=== PATIENT | male | born 1950 | race Two or more races ===

== ENCOUNTER 2017-05-24 07:55 | Day surgery (SDC) | payer OTHER ==
[2017-05-24] VITALS (8 sets, daily range): BP systolic 103–140; BP diastolic 70–81
[~2017-05-24] VITALS: Ht 162.6 cm; Wt 68.0 kg
--- NOTE | 2017-05-24 06:45 | Anethesia Preoperative Eval ---
Anesthesia Pre-op PMH/ROS General Date of Evaluation: May 24, 2017 Time of Evaluation: 06:44 Anesthesiologist: chadd ASA Score: ASA 3 Mallampati Score Class I : Soft palate, uvula, fauces, pillars visible Class II: Soft palate, uvula, fauces visible Class III: Soft palate, base of uvula visible Class IV: Only hard plate visible Mallampati Classification: Class II Surgeon: levy Diagnosis: gerd Surgical Procedure: egd Anesthesia History: none Family History: no anesthesia problems Allergies: Coded Allergies: No Known Allergies (Unverified , 05/23/17) Medications: see eMAR Past Medical History Cardiovascular: Reports: HTN Gastrointestinal/Genitourinary: Reports: GERD Neurologic/Psychiatric: Reports: depression/anxiety Endocrine: Reports: hypothyroidism Musculoskeletal/Integumentary: Reports: OA Anesthesia Pre-op Phys. Exam Physician Exam Last Vital Signs Date Time Temp Pulse Resp B/P (MAP) Pulse Ox O2 Delivery O2 Flow Rate FiO2 05/24/17 08:35 97.5 69 20 140/70 Room Air Constitutional: NAD Neurologic: CN 2-12 intact Cardiovascular: RRR Respiratory: CTA Gastrointestinal: S/NT/ND Airway Exam Mallampati Score: Class II MO: full Neck: short TMD: 2fb ROM: full Teeth: intact Anesthesia Pre-op A/P Risk Assessment & Plan Assessment: asa3 Plan: mac Status Change Before Surgery: No Pre-Antibiotics Drug: MARGIE Mccrary May 24, 2017 06:45
--- NOTE | 2017-05-24 07:31 | Short Stay Surgery H&P ---
History of Present Illness History of Present Illness Chief Complaint Abdominal pains, GERDS. RAMANDEEP Martinez is a 67 year old male who was admitted on for GERD and abdominal pains Patient History Allergies: Coded Allergies: No Known Allergies (Unverified , 05/23/17) PAST MEDICAL HISTORY: (1) Hypertension (2) Inguinal hernia (3) Bunion (4) H/O knee surgery Past Surgeries: (1) H/O knee surgery (2) Inguinal hernia (3) Bunion Social History: Review of Systems Cardiovascular: Reports: no symptoms Respiratory: Reports: no symptoms Skeletal: Reports: spinal disc disease Gastrointestinal: Reports: gastro esophageal reflux disease Genitourinary: Reports: no symptoms Neurologic: Reports: no symptoms, neuropathy Endocrine: Reports: no symptoms Hematologic: Reports: no symptoms Physical Exam Skin: normal HENT: normal Heart: normal Lungs: normal Abdomen: abnormal Extremities: normal Genitourinary: normal Plan Plan of Care Upper Gi endoscopy and biopsy Preop Interventions None Summary of Findings See the reports Final Diagnosis: Attestation Are the patient's medical conditions optimized for surgery? Attestation Response: yes SANDY AYALA May 24, 2017 07:31
--- NOTE | 2017-05-24 07:32 | Pre-Procedure Note/Attestation ---
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 I attest that, if there was a reasonable possibility of needing a blood transfusion, the patient (or the patient's legal sales representative [employer]) was given the [facility] standardized written summary, pursuant to the [place] Blood Safety Act ([place] Health and Safety Code # 1645, as amended). I attest that I re-evaluated the patient just prior to the surgery and that there has been no change in the patient's H&P, except as documented below: LUCY,SAID May 24, 2017 07:32
[~2017-05-24 07:55] MED LIST: LR 1000ml 1,000 ML IVLG SCH
[2017-05-24] MEDS ORDERED: AMLODIPINE BESYL5 MG ORAL (08:33)
[2017-05-24] MEDS ORDERED: OMEPRAZOLE20 M2 ORAL (08:33)
[2017-05-24] MEDS ORDERED: LISINOPRIL20 MG ORAL (08:33)
[2017-05-24] MEDS ORDERED: LEVOTHYROXINE75 MCG ORAL (08:33)
[2017-05-24] MEDS ORDERED: IBUPROFEN600 MG ORAL (08:33)
[2017-05-24] MEDS ORDERED: LR 1000ml ONE (09:30)
[2017-05-24] MEDS ORDERED: Propofol 200mg/20ml IV ONE (09:30)
[2017-05-24] MEDS ORDERED: Lidocaine 1% MPF 10mg/ml 5ml ONE (09:30)
[2017-05-24] MEDS ORDERED: LR 1000ml 1,000 ML IVLG SCH (09:42)
--- NOTE | 2017-05-24 09:42 | Endoscopy Procedure Note ---
Endoscopy Procedure Note Indication for Procedure: Abdominal pains, GERDS Procedures Performed: EGD - Mild gastritis, biopsies obtained from antrum and gastric body. Specimen: yes Pt Tolerated Procedure Well: Yes Estimated Blood Loss: none Anesthesiologist: Dr. Perez Anesthesia: moderate sedation Medication Given: see anesthesia record Implant(s) used?: No 50 yrs or older w/o bx or poly: Not Applicable 10yrs. F/U not recommended: Not Applicable If not recommended, why?: Med reason:<3 yrs.: System Reason:<3 yrs.: SANDY AYALA May 24, 2017 09:42
--- NOTE | 2017-05-24 09:43 | Discharge Instructions ---
Discharge Instructions Discharge Instructions Follow up with: See Dr. Gordon in office in 2 weeks For Congestive Heart Failure Reminder Report to your physician any weight gain of 5 pounds or more in one week. LUCY,SAID May 24, 2017 09:43
[2017-05-24] MEDS ORDERED: fentaNYL 100 mcg/2 mL IV PRN (09:45)
[2017-05-24] MEDS ORDERED: DiphenhydrAMINE 50mg/ml Inj IVP PRN (09:45)
[2017-05-24] MEDS ORDERED: Atropine Inj 1mg/10ml Syr IV PRN (09:45)
[2017-05-24] MEDS ORDERED: Midazolam 2mg/2ml Inj IVP PRN (09:45)
--- NOTE | 2017-05-24 10:03 | Immediate Post-Op Evaluation ---
Immediate Post-Op Evalulation Immediate Post-Op Evalulation Procedure: egd Date of Evaluation: May 24, 2017 Time of Evaluation: 10:02 IV Fluids: 400ml lr Blood Products: none Estimated Blood Loss: negligible Blood Pressure Systolic: 111 Blood Pressure Diastolic: 73 Pulse Rate: 68 Respiratory Rate: 18 O2 Sat by Pulse Oximetry: 99 Temperature (Fahrenheit): 98.4 Pain Score (1-10): 0 Nausea: No Vomiting: No Complications none Patient Status: awake, reacts, patent Hydration Status: adequate Drug: MARGIE Mccrary May 24, 2017 10:03
--- NOTE | 2017-05-24 10:04 | 48 Hour Post Anesthesia Eval ---
Post Anesthesia Evaluation Procedure: egd Date of Evaluation: May 24, 2017 Time of Evaluation: 10:04 Blood Pressure Systolic: 111 0: 77 Pulse Rate: 66 Respiratory Rate: 18 Temperature (Fahrenheit): 98.4 O2 Sat by Pulse Oximetry: 99 Airway: patent Nausea: No Vomiting: No Pain Intensity: 0 Hydration Status: adequate Cardiopulmonary Status: stable Mental Status/LOC: patient returned to baseline Post-Anesthesia Complications: none Follow-up care needed: N/A MARGIE MATTHEWS May 24, 2017 10:04
--- NOTE | 2017-05-24 13:45 | Pre-op HX & Phy Repo 2 SIG ---
DATE OF ADMISSION: 05/24/2017 REFERRING PHYSICIAN: Russell Gregorio M.D. HISTORY OF PRESENT ILLNESS: The patient is a 67-year-old gentleman, who is being seen prior to undergoing the procedure of upper GI endoscopy for which he has been scheduled to receive for evaluation of gastrointestinal symptoms that he had suffered subsequent to his work injury. The patient has been seen by me in the past for the problem of abdominal pain and pressure over the epigastric area, radiating towards his chest and was supposed to undergo the procedure for upper GI endoscopy for which he has been scheduled at this point. The patient reports that the pains are rather severe at times and aggravated by consumption of condiments and spicy foods as well. He has a moderate amount of heartburn. The applicant reports that basically his symptoms have been exaggerated by taking medications such as ibuprofen and nonsteroidal anti-inflammatory agents that he was started on subsequent to his work injury. He does occasionally have some elements of nausea, but no vomiting and he has no hematemesis, melena, hematochezia, difficulty swallowing, etc. As I mentioned, basically these symptoms have occurred when he was started on multiple medications including ibuprofen and naproxen for the treatment of his work-related bodily injuries. The patient denies any constipation. There was also question of him having undergone an upper GI endoscopy and workup in the past for which he has been possibly diagnosed to have Helicobacter pylori infection, but it is not clear at this point. 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 PAST MEDICAL HISTORY: Hypertension. Otherwise, no other conditions reported. PAST SURGICAL HISTORY: The applicant has had history of right knee surgery and also left inguinal hernia and bunion operations in the past. ALLERGIES: None significant. HABITS: The applicant denies drinking alcohol or smoking cigarettes, etc. CURRENT MEDICATIONS: Ibuprofen, amlodipine, lisinopril, omeprazole, and levothyroxine. REVIEW OF SYSTEMS: Basically as per history of present illness. PHYSICAL EXAMINATION: GENERAL: Reveals alert, oriented, very pleasant gentleman, does not seem to be in any acute distress. VITAL SIGNS: All the vital signs are stable. HEENT: Normocephalic. Pupils are equal in size and reactive to light and accommodation. No jaundice. NECK: Supple. No JVD, thyromegaly, or adenopathy. CHEST: Clear to auscultation and percussion. No rales or rhonchi. HEART: S1 and S2 normal. Regular rhythm. No gallops or murmur. ABDOMEN: Soft, but mildly tender over the upper part of the abdomen, epigastric area. There is no hepatosplenomegaly. Bowel sounds are present. No masses noted. EXTREMITIES: Unremarkable. PRELIMINARY PREOPERATIVE IMPRESSION: 1. Epigastric pain of uncertain etiology, rule out gastroesophageal reflux versus esophagitis, gastritis, peptic ulcer disease induced by NSAID medications. 2. History of bodily injuries, work-related. RECOMMENDATION: The applicant seems to be quite stable this time to undergo the procedure of upper GI endoscopy and he understands the risks and benefits and will sign the consent for this procedure. Said Matheus Gordon DR: AURELIA JOB#: [id number] CC:
--- NOTE | 2017-05-24 18:00 | Procedure Note ---
DATE OF PROCEDURE: 05/24/2017 REFERRING PHYSICIAN: Russell Gregorio M.D. SURGEON: Memo Gordon M.D. PROCEDURE: Esophagogastroduodenoscopy with biopsy. PREOPERATIVE DIAGNOSES: Abdominal pain, gastroesophageal reflux, chest pain, and nausea. POSTOPERATIVE DIAGNOSIS: Mild generalized gastritis. Biopsy was taken from the antrum and gastric body area. MEDICATIONS USED: Per Dr. Perez, anesthesiologist. INSTRUMENT: GIF Olympus upper gastrointestinal video endoscope. DESCRIPTION OF PROCEDURE: The patient after arriving endoscopy unit, was told about risks and benefits of the procedure, which he accepted and signed informed consent. He was then put on the left lateral decubitus position. After adequate IV sedation, the scope was gently passed through the cricopharyngeal area, was lodged into the upper esophagus, and gradually advanced towards gastroesophageal junction. The entire length of the esophagus looked normal. No evidence of inflammatory process, ulceration, stricture, etc. was found. GE junction also looked completely normal without any evidence of hiatal hernia or Flores's. The scope at this time was advanced into the stomach. Gastric cavity was distended. Gradually the areas of the fundus and the body and the antrum were examined, which revealed evidence of mild inflammatory process consistent with mild gastritis presenting with mild erythema of the gastric mucosa. There was no ulcers, tumors, polyps, hemangioma, etc. A retroflexion maneuver was also applied. The area of the gastroesophageal junction was examined, which revealed normal findings except mild gastritis. Finally, the scope was passed on into the body of the stomach and one random biopsy from gastric body obtained and subsequently, scope was passed through the antrum and the biopsy was also obtained from the gastric mucosa in this area. Finally, scope was passed through normal looking pylorus. First and second portion of the duodenum were found to be completely normal. At this point, the procedure was terminated. The patient tolerated the procedure well and left the endoscopy room in a good condition. Mmeo Gordon M.D. DR: AURELIA JOB#: [id number] CC: ANITA
== END 2017-05-24 11:00 | disposition home or self-care (01) ==
LOC: GAS 07:55
DX: K21.9 Gastro-esophageal reflux disease without esophagitis (principal); R07.9 Chest pain, unspecified; R11.0 Nausea; K29.70 Gastritis, unspecified, without bleeding; I10 Essential (primary) hypertension; F32.9 Major depressive disorder, single episode, unspecified; F41.9 Anxiety disorder, unspecified; M19.90 Unspecified osteoarthritis, unspecified site
CPT/HCPCS: 43239; J2704; J7120; 94003; 94150